=== PATIENT | male | born 1930 | race Hispanic/Latino ===

== ENCOUNTER 2016-09-30 11:42 | Day surgery (SDC) | payer MEDICARE, BC ==
[2016-09-29 10:07] VITALS: BMI 22.6
[2016-09-30 12:18] LABS: ADD MANUAL DIFF? NO
[2016-09-30 12:28] LABS: BASO # 0.04 K/mm3 (0.0-2.0); BASO % 0.4 % (0.0-3.0); EOS # 0.4 (0.0-0.7); EOS % 3.9 % (1.5-5.0); GRAN # 6.79 (1.4-6.5); GRAN % 69.3 % (50.0-68.0); HEMATOCRIT 37.5 % (42.0-52.0); LYMPH # 1.6 (1.2-3.4); LYMPH % 16.6 % (22.0-35.0); MEAN CELL VOLUME 84.7 fL (80.0-105.0); MEAN CORPUSCULAR HEMOGLOBIN 28.2 pg (25.0-35.0); MEAN CORPUSCULAR HGB CONC 33.3 g/dl (31.0-37.0); MEAN PLATELET VOLUME 9.7 fl (7.0-11.0); MONO % 9.8 % (1.0-6.0); PLATELET COUNT 484 10^3/uL (120.0-450.0); RED CELL DISTRIBUTION WIDTH 16.1 % (11.5-14.5); WHITE BLOOD COUNT 9.8 10^3/ul (4.5-11.0)
[2016-09-30 12:31] LABS: CALCIUM 9.5 mg/dL (8.4-10.5); POTASSIUM 4.5 mmol/L (3.6-5.0)
[2016-09-30 12:35] LABS: INR 1.08 (0.93-1.08); PARTIAL THROMBOPLASTIN TIME 26.7 Seconds (23.7-30.8)
[2016-09-30 12:38] VITALS: TEMP 97.9
--- NOTE | 2016-09-30 12:47 | CP.SDSHP ---
Same Day Surgery H & P - History Proposed Procedure: lung Bx. Pre-Op Diagnosis: lung opacity./?mass. - Previous Medical/Surgical History Cardiac: Hypertension, ASHD/CAD, PVD Pulmonary: Smoking Neuro: Backaches Pain: 0. No Pain Previous Surgical History: quadruple bypass. - Physical Exam General Appearance: WNL. Vital Signs: Vital Signs 09/30/16 12:15 Temperature 97.9 F Pulse Rate 73 Respiratory 18 Rate Blood Pressure 161/72 H O2 Sat by Pulse 99 Oximetry Mental Status: Alert & Oriented x3 Neuro: WNL Heart: WNL Lungs: WNL GI: WNL - {Optional Preform as Required} Other Pertinent Findings: gerd. - Impression Impression: LUNG OPACITY/?MASS. - Date & Time Date: 09/30/16 Time: 12:46 Short Stay Discharge - Short Stay Discharge Admitting Diagnosis/Reason for Visit: CT LUNG BX R91.1 Disposition: HOME/ ROUTINE
[2016-09-30] MEDS ORDERED: Midazolam 2 MG/2 ML VIAL ONE (15:12)
[2016-09-30] MEDS ORDERED: Oxycodone/Acetaminophen 5/325 mg Tab PO PRN (16:06)
[2016-09-30] MEDS ORDERED: Sodium Chloride 0.45% 1,000 ML IV SCH (16:15)
[2016-09-30 17:35] VITALS: BP 141/54; PULSE 69; RESP 20; O2SAT 98
--- NOTE | 2016-09-30 21:19 | CT ---
PROCEDURE: CT guided right upper lobe lung biopsy. HISTORY: 4-5 cm right hilar mass with post obstructive collapse. Evaluate for malignant disease PHYSICIAN(S): Chris Lam MD. TECHNIQUE: The relative risks and indications of the procedure were explained to the patient and consent obtained. The patient was placed supine on the CT scanner and preliminary images through the upper lungs obtained. Conscious sedation and monitoring were provided throughout the procedure by a nurse. There is a mass in the region the right hilum with associated obstruction. Calcification is noted.. A right parasternal approach was selected and the area prepped and draped in the usual sterile fashion. 1% Xylocaine was used to anesthetize the skin and soft tissues. A 18 gauge guiding needle was advanced into the 4-5 cm right hilar mass. Its position was confirmed with CT. Using coaxial technique, multiple core biopsies were obtained. The postprocedure images show no evidence of significant hemorrhage or large pneumothorax.. IMPRESSION: 1. CT-guided right lung biopsy as described above.
--- NOTE | 2016-10-01 13:07 | RAD ---
HISTORY: rt lung bx COMPARISON: No prior. FINDINGS: LUNGS: There is a mass in the mid right lung projecting over the hilum. This may be a hilar mass. No other pulmonary mass is identified. There is no pulmonary infiltrate. PLEURA: No pneumothorax identified. No pleural effusion. CARDIOVASCULAR: Status post CABG. Normal heart size. OSSEOUS STRUCTURES: No significant abnormalities. VISUALIZED UPPER ABDOMEN: Normal. OTHER FINDINGS: None. IMPRESSION: Right-sided pulmonary mass projecting over hilum. No pneumothorax status post CT-guided biopsy.
== END 2016-09-30 18:45 | disposition home or self-care (01) ==
LOC: SDS 11:42
PROVIDERS: ATTEND Radiology Vascular & Interventional Radiology
DX: C34.11 Malignant neoplasm of upper lobe, right bronchus or lung (principal); I10 Essential (primary) hypertension; I73.9 Peripheral vascular disease, unspecified; I25.10 Atherosclerotic heart disease of native coronary artery without angina pectoris; F17.210 Nicotine dependence, cigarettes, uncomplicated
CPT/HCPCS: 32405; 36415; 71010; 77012; 80048; 85025; 85610; 85730; 88305; J2250; J2405; J3010; J7030; J7040